=== PATIENT | male | born 1995 | race Caucasian/White ===

== ENCOUNTER 2016-06-07 23:33 | Emergency (ER) | payer SELFPAY | END 2016-06-08 02:17 | disposition left against medical advice (07) | LOC: ER 23:33 | DX: Z53.21 Procedure and treatment not carried out due to patient leaving prior to being seen by health care provider (principal) ==

== ENCOUNTER 2017-09-30 19:03 | Emergency (ER) | payer OTHER ==
[2017-09-30 19:17] VITALS: BP 133/84
--- NOTE | 2017-09-30 20:34 | RADIOLOGY REPORT (SQ) ---
EXAM DESCRIPTION: HAND RIGHT 3 VIEWS COMPLETED DATE/TIME: 09/30/2017 8:10 pm REASON FOR STUDY: right hand injury COMPARISON: None. EXAM PARAMETERS: NUMBER OF VIEWS: Three views. TECHNIQUE: AP, lateral and oblique radiographic images acquired of the right hand. LIMITATIONS: None. FINDINGS: MINERALIZATION: Normal. BONES: No acute fracture or dislocation. No worrisome bone lesions. JOINTS: No effusions. SOFT TISSUES: Dorsal soft tissue swelling. No foreign body. OTHER: No other significant finding. IMPRESSION: No fracture. TECHNICAL DOCUMENTATION: JOB ID: [id number] [employer]- All Rights Reserved Reading location - IP/workstation name: [email or web address]
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
[2017-09-30] MEDS ORDERED: AMOXICILLIN TR/POT CLAVULANATE 500-125 MG TAB PO ONE (20:51)
== END 2017-09-30 21:16 | disposition home or self-care (01) ==
LOC: ER 19:03
DX: S61.411A Laceration without foreign body of right hand, initial encounter (principal); Y04.0XXA Assault by unarmed brawl or fight, initial encounter; F17.200 Nicotine dependence, unspecified, uncomplicated; J45.909 Unspecified asthma, uncomplicated
CPT/HCPCS: 99283

== ENCOUNTER 2017-10-23 14:40 | Emergency (ER) | payer OTHER ==
--- NOTE | 2017-10-23 16:53 | RADIOLOGY REPORT (SQ) ---
EXAM DESCRIPTION: CHEST 2 VIEWS COMPLETED DATE/TIME: 10/23/2017 4:43 pm REASON FOR STUDY: cp COMPARISON: None. EXAM PARAMETERS: NUMBER OF VIEWS: two views TECHNIQUE: Digital Frontal and Lateral radiographic views of the chest acquired. RADIATION DOSE: NA LIMITATIONS: none FINDINGS: LUNGS AND PLEURA: No opacities, masses or pneumothorax. No pleural effusion. MEDIASTINUM AND HILAR STRUCTURES: No masses or contour abnormalities. HEART AND VASCULAR STRUCTURES: Heart normal size. No evidence for failure. BONES: No acute findings. HARDWARE: None in the chest. OTHER: No other significant finding. IMPRESSION: NO ACUTE RADIOGRAPHIC FINDING IN THE CHEST. TECHNICAL DOCUMENTATION: JOB ID: [id number] [employer]- All Rights Reserved Reading location - IP/workstation name: [email or web address]
--- NOTE | 2017-10-23 17:22 | ER Document Report ---
ED Medical Screen (RME) - General Chief Complaint: Chest Pain Stated Complaint: CHEST PAIN Time Seen by Provider: 10/23/17 16:16 Mode of Arrival: Ambulatory Information source: Patient Notes: This is a 22-year-old man with a history of asthma, one half pack per day smoker who presents to the emergency room with intermittent sharp chest pain. He states that sharp chest pain comes after exerting himself. He is fairly active and runs between 2 and 5 miles several times a week. 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 He states that this will lessen wheezing and also lessens the pain he gets with exercising. He describes the pain is sharp and shooting and lasting seconds at a time. He denies any drug or cocaine abuse. TRAVEL OUTSIDE OF THE [place] IN LAST 30 DAYS: No - HPI Onset: Last week Onset/Duration: Gradual Quality of pain: Sharp, Stabbing Severity: None Pain Level: Denies Associated Symptoms: Chest pain. denies: Cough (productive), Cough ( nonproductive), Nausea, Shortness of breath Exacerbated by: Denies Relieved by: Denies Similar symptoms previously: Yes Recently seen / treated by doctor: Yes - Related Data Smoking: Cigarettes Frequency of alcohol use: None Drug Abuse: None Allergies/Adverse Reactions: No Known Allergies Allergy (Verified 10/23/17 14:42) Past Medical History - General Information source: Patient - Social History Cigarette use (# per day): Yes - 1-1/2 packs per day Chew tobacco use (# tins/day): No Frequency of alcohol use: None Drug Abuse: None Lives with: Family Family history: None - Past Medical History Cardiac Medical History: Reports: None Pulmonary Medical History: Reports: Hx Asthma Renal/ Medical History: Denies: Hx Peritoneal Dialysis Past Surgical History: Reports: Hx Orthopedic Surgery - right ankle ligament repair Review of Systems - Review of Systems Constitutional: denies: Chills, Fever EENT: See HPI Cardiovascular: Chest pain. denies: Palpitations, Heart racing, Orthopnea, Dyspnea Respiratory: No symptoms reported Gastrointestinal: No symptoms reported Genitourinary: No symptoms reported Male Genitourinary: No symptoms reported Musculoskeletal: See HPI Skin: No symptoms reported Hematologic/Lymphatic: No symptoms reported Neurological/Psychological: No symptoms reported Physical Exam - Vital signs Vitals: Temp Pulse Resp BP Pulse Ox 98.6 F 61 18 143/81 H 98 10/23/17 14:46 10/23/17 14:46 10/23/17 14:46 10/23/17 14:46 10/23/17 14:46 Notes: Physical exam: GENERAL: 22-year-old male, alert and oriented 3, no acute distress. HEAD: Atraumatic, normocephalic. EYES: Pupils equal round and reactive to light, extraocular movements intact, sclera anicteric, conjunctiva are normal. ENT: TMs normal, nares patent, oropharynx clear without exudates. Moist mucous membranes. NECK: Normal range of motion, supple without obvious mass or JVD. LUNGS: Breath sounds clear to auscultation bilaterally and equal. No wheezes rales or rhonchi. HEART: Regular rate and rhythm without murmurs, rubs or gallops. ABDOMEN: Soft, normoactive bowel sounds. No tenderness to palpation. No guarding, no rebound. No masses appreciated. EXTREMITIES: Normal range of motion, no pitting or edema. No clubbing or cyanosis. NEUROLOGICAL: Cranial nerves II through XII grossly intact. Normal speech, moving all extremities. PSYCH: Normal mood, normal affect. SKIN: Warm, Dry, normal turgor, no rashes or lesions noted. Course - Vital Signs Vital signs: Temp Pulse Resp BP Pulse Ox 98.6 F 61 18 143/81 H 98 10/23/17 14:46 10/23/17 14:46 10/23/17 14:46 10/23/17 14:46 10/23/17 14:46 - Diagnostic Test Radiology reviewed: Image reviewed, Reports reviewed - Chest x-ray shows no infiltrates or effusions. - EKG Interpretation by Tx Rate: Normal Rhythm: NSR - EKG shows normal sinus rhythm with a ventricular rate of 47, no acute ST-T wave changes Doctor's Discharge - Discharge Clinical Impression: Chest wall pain, History of asthma Condition: Stable Disposition: HOME, SELF-CARE Additional Instructions: As we discussed, your chest x-ray looked quite good. Your EKG was normal. You do have asthma and the smoking will certainly make you more prone to exertional type asthma and will hinder you workouts. I recommend you continue using your inhaler prior to running or boxing. I strongly encourage you to try and cut down your smoking and ultimately stop smoking completely. I would like you to follow-up with your doctors at [facility]. Regarding Cigarette Smoking: There are multiple personal reasons to want to quit smoking These reasons can inspire you to stop smoking for good. Here are just a few reasons to quit today : Your Health and Appearance: Your chances of cancer, heart attack, stroke, cataracts and other diseases will go down. You will cough less and breath better. You will experience less respiratory infections. Your skin may look healthier, and you may look tounger. Your teeth and fingernails will not be stained. Your Loved Ones: You children will be healthier (second hand smoke is dangerous to babies during , infants and children). women who breath in secondhand smoke over time are more likely to have miscarriage, have young babies from Sudden Syndrome, have babies that get sick more often. Children who breathe in secondhand smoke over time are more likely to have wheezing, more severe asthma attacks, pneumonia. There are resources to help you stop smokin. Call for Free Help: 3-223-Wyvo-Now (495 878-5484). or in lao: 8-781- RENETTA-YA (879-675-8976). 2. Sign up for free texts: SmokefreeTXT: [place] [address], answer a few questions and you'll start receiving messages. 3. Visit the CDC website: www.cdc.gov/tobacco/campaign/tips/quit-smoking/ quitting-resources.html 4. Discusse further methods with your primary care physician.
[2017-10-23 17:35] VITALS: BP 121/79
--- NOTE | 2017-10-23 22:57 | EKG REPORT ---
SEVERITY:- OTHERWISE NORMAL ECG - SINUS BRADYCARDIA : Confirmed by: Vicky Rothman 23-Oct-2017 22:56:22
== END 2017-10-23 17:31 | disposition home or self-care (01) ==
LOC: ER 14:40
DX: R07.89 Other chest pain (principal); J45.909 Unspecified asthma, uncomplicated; F17.210 Nicotine dependence, cigarettes, uncomplicated
CPT/HCPCS: 71046; 93005; 93010; 99283

== ENCOUNTER 2017-11-06 17:47 | Emergency (ER) | payer OTHER ==
[2017-11-06 17:52] VITALS: BP 138/80
== END 2017-11-06 18:05 | disposition left against medical advice (07) ==
LOC: ER 17:47
DX: Z53.21 Procedure and treatment not carried out due to patient leaving prior to being seen by health care provider (principal); M54.9 Dorsalgia, unspecified